=== PATIENT | male | born 1960 | race Caucasian/White ===

== ENCOUNTER 2018-05-24 07:26 | Day surgery (SDC) | payer OTHER ==
[~2018-05-24] VITALS: Ht 165.1 cm; Wt 97.2 kg
[2018-05-24 08:02] VITALS: Ht 165.1 cm; Wt 97.2 kg
[2018-05-24 09:50] VITALS: BP 155/79; PULSE 86; RESP 18
[2018-05-24] MEDS ORDERED: FENTAnyl 50 MCG/ML VIAL ONE (10:46)
[2018-05-24] MEDS ORDERED: MIDAZOLAM 1 MG/ML 2 ML INJ ONE ×3 (10:46)
== END 2018-05-24 15:55 | disposition home or self-care (01) ==
LOC: GIL 07:26
PROVIDERS: ATTEND Internal Medicine Gastroenterology
DX: Z12.11 Encounter for screening for malignant neoplasm of colon (principal); K57.30 Diverticulosis of large intestine without perforation or abscess without bleeding
CPT/HCPCS: 45385; 88305; J2250; J3010